=== PATIENT | male | born 1980 | race Two or more races ===

== ENCOUNTER 2023-02-03 23:01 | Emergency (ER) | payer OTHER ==
[~2023-02-03] VITALS: Ht 182.9 cm; Wt 81.6 kg
[2023-02-04] MEDS ORDERED: CEPHALEXIN500 MG PO (00:44)
[2023-02-04] MEDS ORDERED: INTESTINEX680 M1 PO (00:44)
[2023-02-04] MEDS ORDERED: ONDANSETRON ODT4 MG PO (00:44)
[2023-02-04] MEDS ORDERED: PEPCID40 MG PO (00:44)
== END 2023-02-04 01:10 ==
LOC: ER 23:01
DX: S01.21XA Laceration without foreign body of nose, initial encounter (principal); W18.30XA Fall on same level, unspecified, initial encounter; Y93.89 Activity, other specified; Y92.012 Bathroom of single-family (private) house as the place of occurrence of the external cause; Y99.9 Unspecified external cause status; R55 Syncope and collapse; A05.9 Bacterial foodborne intoxication, unspecified; Z91.013 Allergy to seafood